=== PATIENT | male | born 1945 | race Caucasian/White ===

== ENCOUNTER 2019-12-15 09:38 | Outpatient (CLI) | payer OTHER, SELFPAY ==
--- NOTE | 2019-12-15 11:30 | NEURO_ITS ---
Patient Number: [id number] Impression: # Complains of left lower extremity giving out. # Normal nerve conduction study including F-waves. # Needle/EMG exam not requested. # Clinical correlation recommended. Nerve Conduction Studies Anti Sensory Summary Table Stim Site NR Peak (ms) P-T Amp (?V) Site1 Site2 Delta-P (ms) Dist (cm) Paco (m/s) Left Sup Fibular Anti Sensory (Ant Lat Mall) 14 cm 3.4 17.5 14 cm Ant Lat Mall 3.4 16.0 47 Left Sural Anti Sensory (Lat Mall) Calf 3.5 10.3 Calf Lat Mall 3.5 16.0 46 Motor Summary Table Stim Site NR Onset (ms) O-P Amp (mV) Site1 Site2 Delta-0 (ms) Dist (cm) Paco (m/s) Left Peroneal Motor (Vastus Med) Ankle 4.9 2.4 Popit Ankle 7.9 38.0 48 Popit 12.8 1.8 Left Tibial Motor (Abd Fenton Brev) Ankle 4.6 9.6 Knee Ankle 9.4 42.0 45 Knee 14.0 5.9 F Wave Studies NR F-Lat (ms) L-R F-Lat (ms) Left Peroneal (Mrkrs) (EDB) 53.39 Left Tibial (Mrkrs) (Abd Hallucis) 52.43 MTDD
== END 2019-12-15 09:39 | disposition home or self-care (01) ==
PROVIDERS: PCP Family Medicine Adolescent Medicine; Visit Provider Family Medicine Adolescent Medicine
DX: R20.2 Paresthesia of skin (principal); R20.0 Anesthesia of skin
CPT/HCPCS: 95908

== ENCOUNTER → 2020-03-21 09:34 | Outpatient (CLI) | payer OTHER, SELFPAY ==
--- NOTE | ~2020-03-21 | XR_ITS ---
EXAMINATION: XR hip RT min 2V DATE: 03/21/2020 10:02 INDICATION: Right hip pain. TECHNIQUE: 2 views of right hip were obtained. COMPARISON: None. FINDINGS: Bone alignment is normal. No fracture. There is severe right hip osteoarthritis. IMPRESSION: 1. Severe right hip osteoarthritis. Reviewed, dictated and finalized at location B.
== END ==
PROVIDERS: PCP Family Medicine Adolescent Medicine; Visit Provider Family Medicine Adolescent Medicine
DX: M25.551 Pain in right hip (principal); M16.11 Unilateral primary osteoarthritis, right hip
CPT/HCPCS: 73502

== ENCOUNTER 2020-09-26 11:28 | Outpatient (CLI) | payer OTHER, SELFPAY ==
--- NOTE | 2020-09-26 | ECG_ITS ---
Measurements Intervals [place] Rate: 64 P: 91 CA: 205 QRS: 61 QRSD: 96 T: 68 QT: 416 QTc: 429 Interpretive Statements SINUS RHYTHM BASELINE ARTIFACT- I, II, III, AVR, AVL, AVF, V1 BORDERLINE ECG Electronically Signed On 09-26-2020 13:07:39 CABINETMAKER MAINTENANCE by Yvon Tejeda D.O.
[2020-09-26 12:12] LABS: Hematocrit 36.4 % (42.0-52.0); Hemoglobin 11.3 g/dL (14.0-18.0)
[2020-09-26 12:19] LABS: Hemoglobin A1C 4.8 % (<5.7); Urine Cotinine NEGATIVE
[2020-09-26 12:20] LABS: Albumin Level 3.9 g/dL (3.5-5.1); Estimated Glomerular Filt Rate > 60; Glucose 118 mg/dL (75-110)
== END 2020-09-26 11:29 | disposition home or self-care (01) ==
LOC: ANHLAB 11:34
PROVIDERS: PCP Family Medicine Adolescent Medicine; Visit Provider Orthopaedic Surgery
DX: Z01.818 Encounter for other preprocedural examination (principal); M17.11 Unilateral primary osteoarthritis, right knee; J44.9 Chronic obstructive pulmonary disease, unspecified; Z87.891 Personal history of nicotine dependence; Z51.81 Encounter for therapeutic drug level monitoring; Z79.899 Other long term (current) drug therapy
CPT/HCPCS: 80307; 82040; 82565; 82947; 83036; 85014; 85018; 93005

== ENCOUNTER 2020-10-10 09:45 | Outpatient (CLI) | payer OTHER, SELFPAY ==
[2020-10-10 11:28] LABS: Basophils Percent Auto 0.5 % (0.2-1.2); Eosinophils Percent Auto 0.2 % (0-4.4); Hematocrit 36.7 % (42.0-52.0); Hemoglobin 11.5 g/dL (14.0-18.0); Immature Granulocyte Absolute 0.04 K/mm3 (0.00-0.031); Immature Granulocyte Percent A 0.5 % (0-0.5); Immature Platelet Fraction Pct 2.8 % (0.9-11.2); Lymphocytes Absolute Auto 0.86 K/mm3 (0.9-3.2); Lymphocytes Percent Auto 9.8 % (18.3-44.2); Mean Corpuscular HGB Conc 31.3 g/dl (32-36); Mean Corpuscular Hemoglobin 20.2 pg (26-34); Mean Corpuscular Volume 64.5 fl (80-100); Monocytes Absolute Auto 0.5 K/mm3 (0.1-0.6); Monocytes Percent Auto 5.9 % (2.6-8.5); Neutrophils Absolute Auto 7.3 K/mm3 (1.3-6.7); Neutrophils Percent Auto 83.1 % (45.5-73.1); Platelet Count Result 169 k/mm3 (150-375); Red Blood Count 5.69 M/mm3 (4.6-6.20); Red Cell Distribution Width 17.3 % (11.5-14.5); White Blood Count 8.8 K/mm3 (4.5-10.0)
== END 2020-10-10 09:46 | disposition home or self-care (01) ==
PROVIDERS: PCP Family Medicine Adolescent Medicine; Visit Provider Orthopaedic Surgery
DX: M16.11 Unilateral primary osteoarthritis, right hip (principal); Z01.812 Encounter for preprocedural laboratory examination
CPT/HCPCS: 36415; 85025; 85055; 87081

== ENCOUNTER → 2020-10-28 05:27 | Outpatient (CLI) | payer OTHER, SELFPAY ==
[2020-10-28 19:34] LABS: SARS-CoV-2 RNA PCR Negative
== END ==
PROVIDERS: PCP Family Medicine Adolescent Medicine; Visit Provider Orthopaedic Surgery
DX: Z01.812 Encounter for preprocedural laboratory examination (principal); Z20.822 Contact with and (suspected) exposure to COVID-19
CPT/HCPCS: C9803; U0003; U0005

== ENCOUNTER 2020-10-31 10:59 | Inpatient (IN) | payer OTHER, SELFPAY ==
[2020-10-10 10:18] VITALS: BP 162/99; PULSE 96; RESP 20; TEMP 36.6; O2SAT 100; BMI 22.6
[2020-10-31] VITALS (15 sets, daily range): BP systolic 156–207; BP diastolic 81–101; PULSE 63–80; RESP 10–21; TEMP 35.8–36.4; O2SAT 96–100
--- NOTE | ~2020-10-31 | XR_ITS ---
EXAMINATION: XR hip RT min 2V EXAM DATE: 10/31/2020 10:06 INDICATION: Total right hip replacement. Postoperative. TECHNIQUE: Portable frontal, crosstable lateral projections right hip obtained immediately following arthroplasty. Procedure performed by Jaswant Morgan MD. FINDINGS: Patient is status post right hip arthroplasty. The orthopedic hardware is in expected pos ition. There is small amount of subcutaneous gas, some soft tissue swelling. Correlate with proce dure note. IMPRESSION: Status post right hip arthroplasty. Reviewed, dictated and finalized at location A.
[2020-10-31] MEDS: ACETAMINOPHEN 500 MG TABLET 1000 MG PO (06:31)
[2020-10-31] MEDS: LACTATED RINGERS 1,000 ML 30 ML IV CONT ×2 (06:35→09:48)
[2020-10-31] MEDS: TRANEXAMIC ACID 1,000MG/ISO100 1,000 MG/100 ML BAG 200 MG IVPB (06:39)
--- NOTE | 2020-10-31 07:03 | WPDANESEPPF ---
Anes - Initial Pre Proc Eval Procedure: Operation Date: 10/31/20 07:30 Proposed Procedures p Right Total Hip Arthroplasty - Jaswant Morgan MD Date/Time: 10/31/20 07:03 Surgeon: Jaswant Morgan MD Pre Op Diagnosis: Primary OA, Right Hip Patient Data Age: 75 Gender: M Height: 5 ft 7 in Weight: 65.7 kg Last Vital Signs Temp 36.6 C 10/10/20 10:18 Pulse 96 10/10/20 10:18 Resp 20 10/10/20 10:18 BP 162/99 H 10/10/20 10:18 Pulse Ox 100 10/10/20 10:18 Allergies Allergy/AdvReac Type Severity Reaction Status Date / Time No Known Allergies Allergy Verified 10/10/20 10:09 Home Medications Medication Instructions Recorded Confirmed Type lisinopril 5 mg tablet 5 mg PO HS 06/15/20 10/16/20 History meloxicam 15 mg tablet 15 mg PO DAILY 06/15/20 10/16/20 History tamsulosin 0.4 mg capsule 0.4 mg PO HS 06/15/20 10/16/20 History aspirin 325 mg PO HS 10/10/20 10/16/20 History atorvastatin 80 mg PO HS 10/10/20 10/16/20 History finasteride 5 mg PO HS 10/10/20 10/16/20 History oxybutynin chloride 10 mg PO HS 10/10/20 10/16/20 History Laboratory Tests 10/28/20 08:00 SARS-CoV-2 RNA (RT-PCR) Cancelled Patient hx anesthesia problems: none Family hx anesthesia problems: none PMFSH Past Medical History Medical History History of stroke 09/18/2016 09/20/2018 Hyperlipidemia Hypertension Family History Family History Father Colon cancer Mother Heart disease Social History Social History Smoking status: Current every day smoker Tobacco type: cigars Smoking end date: 09/11/20 Additional smoking assessment comments: STATES 4 CIGARS/DAY/SINCE 1969 Alcohol intake: current Drinks per week: 3 Substance use: never Substance use type: does not use Living arrangements: with family Spiritual care concerns: No Anes - Eval Final PreProcedure Day of Procedure 10/31/20 07:03 Patient weight: normal Heart: regular rate and rhythm Lungs: decreased breath sounds Airway: Mallampati scale (loose lower incisor) class II Neurological: other (alert) Last oral intake: >/= 8 hours ASA classification: III Emergent: no Anesthetic plan: proceed Anesthesia type and monitoring: general ETT and standard monitoring Informed Consent: The patient's anesthetic plan and its attendant risks and benefits were discussed with the patient/family/POA. Questions were solicited and answers provided to the satisfaction of the patient/family/POA.
--- NOTE | 2020-10-31 07:19 | WPDHPUPDATE1 ---
History and Physical Update Update Date/Time: 10/31/20 07:19 History and Physical has been reviewed, including an updated exam of the patient. There are NO changes in the patient's condition. Risks, benefits, and alternatives have been discussed and questions answered. Patient agrees to proceed with procedure.
[2020-10-31] MEDS: ceFAZolin 2 GM/D5W 50 ML 2 GM/50 ML BAG IVPB (07:30)
[2020-10-31] MEDS: LABETALOL HCL INJ 100 MG/20 ML VIAL IV PUSH (10:05)
[2020-10-31] MEDS: fentaNYL CITRATE INJ (*CRX) 100 MCG/2 ML VIAL 25 MCG IV PUSH ×4 (10:08→10:22)
--- NOTE | 2020-10-31 10:12 | PM.PROC ---
Procedure Note - Detailed Date of procedure: 10/31/20 Pre-op diagnosis: Primary OA, Right Hip Post-op diagnosis: same Procedure performed: Total hip arthroplasty. Implants: The Accolade II hip stem, 127 degree size 6 , was utilized with excellent press-fit. The 52 mm ADM acetabular component was impacted with excellent press-fit stability. The +0 , 28 mm Biolox ceramic femoral head was utilized. [facility] Sur[facility]: Jaswant Morgan MD Tree Surgeon: Nataliia Fenton PA-C Estimated blood loss (mL): 200 Drains: No Complications: None Condition: stable Findings: Physician assistant plant control operator, Nataliia Fenton PA-C, required for surgery; including patient positioning, draping, tissue retraction, maintaining instrument position, dislocation and reduction of the hip joint. Wound closure, and dressing placement. OPERATIVE DETAILS: The patient was given preoperative antibiotics. A general anesthetic was administered. The patient was carefully placed in the lateral decubitus position on the PEG board. The shoulders and hips were carefully positioned for component and leg length positioning reference. The hip was prepped and draped in the usual sterile fashion. A longitudinal incision was created over the posterior aspect of the greater trochanter. Careful dissection was brought down through the deep fascia with electrocautery. A minimally invasive optimized posterior approach to the hip was performed. The short external rotators and capsule were taken down in an L-shaped capsulotomy. The tissue was tagged for later repair using number 2 high strength suture. The femoral neck was measured and taken in situ. The femoral head was removed. The acetabulum was carefully exposed. The inferior capsule was released. The labrum was resected. The acetabulum was sequentially reamed to one over the intended cup size. The cup was impacted into position with excellent press-fit. Typical anatomic landmarks, including the bony contact points as well as the inferior transverse acetabular ligament were used to confirm cup positioning with preoperative templating. Attention was turned to the femur, which was carefully exposed. The hip was reamed and then broached sequentially. Excellent press-fit was obtained with the broach. The hip was trialed. Measurements were utilized, including the lesser trochanter as well as the center of the femoral head and the tip of the trochanter, and excellent assessment of the offset and leg lengths were confirmed. The real component was impacted into position. Trialing confirmed appropriate leg length and offset with soft tissue balancing as well apparent feel of the leg, both at the knee and the heel. Soft tissues were assessed using the the iliotibial band. Reduction of the posterior capsule and external rotators were also used as a secondary assessment. The hip was copiously irrigated with pulsatile lavage antibiotic solution periodically throughout the procedure. The real components were then assembled and reduced. The hip was stable throughout typical maneuvers, including extension, external rotation to 70 degrees, the position of sleep as well as flexion to 90 degrees with internal rotation past 45 degrees. The shake test confirmed stability without impingement. Osteophytes were removed as necessary. The short external rotators and capsule were repaired back to the posterior trochanter through drill holes. The deep fascia was repaired with running number 2 Quill suture, followed by 0 Stratafix suture and 2-0 Stratafix suture in the dermis. Steri-Strips were placed on the skin, followed by a sterile silver occlusive dressing. There were no complications. Meticulous hemostasis was maintained with the AquaMantys device. The patient was brought to the recovery room in stable condition. There were no complications.
[2020-10-31] MEDS: hydrALAZINE HCL 20 MG/ML VIAL 10 MG IV PUSH (10:32)
--- NOTE | 2020-10-31 10:56 | SUR.PHASEI ---
1056 - dr. palafox called in regards to b/p 191/98 hr 76. no orders received at this time
--- NOTE | 2020-10-31 11:07 | ADMGEN ---
This patient, Yazan Peña, was admitted to Medical Room 242-. Patient/family oriented to hospital policies and general routines including ID bracelet, bed and alarms, visiting hours, pain management, procedures, bathroom and other care routines, personal items, smoking policy, room service/diet, and visiting hours. Information on how to activate the Rapid Response Team has been discussed. Patient/Family are encouraged to report perceived risks to care and to ask questions if they do not understand what they are told or what they should do.
[2020-10-31] MEDS: oxyCODONE HCL (*CRX) 5 MG TAB IR 10 MG PO ×2 (11:30→17:34)
[2020-10-31] MEDS: SODIUM CHLORIDE 0.9% IV 1,000 ML 125 ML IV CONT (11:31)
[2020-10-31 11:37] LABS: Hematocrit 33.5 % (42.0-52.0); Hemoglobin 10.5 g/dL (14.0-18.0)
[2020-10-31] MEDS: ONDANSETRON INJ 4 MG/2 ML VIAL IV PUSH (13:45)
[2020-10-31] MEDS: DOCUSATE SODIUM 100 MG CAPSULE PO (17:34)
[2020-10-31] MEDS: ASPIRIN 325 MG TABLET PO (20:44)
[2020-10-31] MEDS: lisinopriL 5 MG TABLET PO (20:44)
[2020-10-31] MEDS: ATORVASTATIN 40 MG TABLET 80 MG PO (20:44)
[2020-10-31] MEDS: FINASTERIDE 5 MG TABLET PO (20:45)
[2020-10-31] MEDS: TAMSULOSIN HCL 0.4 MG CAPSULE PO (20:45)
[2020-11-01 00:44] VITALS: BP 124/57; PULSE 81; RESP 20; TEMP 36.2; O2SAT 98
[2020-11-01 04:44] VITALS: BP 122/52; PULSE 82; RESP 18; TEMP 36.1; O2SAT 97
[2020-11-01 06:02] LABS: Basophils Percent Auto 0.2 % (0.2-1.2); Eosinophils Percent Auto 0.1 % (0-4.4); Hematocrit 29.6 % (42.0-52.0); Hemoglobin 9.4 g/dL (14.0-18.0); Immature Granulocyte Absolute 0.04 K/mm3 (0.00-0.031); Immature Granulocyte Percent A 0.5 % (0-0.5); Immature Platelet Fraction Pct 2.8 % (0.9-11.2); Lymphocytes Absolute Auto 1.22 K/mm3 (0.9-3.2); Lymphocytes Percent Auto 13.9 % (18.3-44.2); Mean Corpuscular HGB Conc 31.8 g/dl (32-36); Mean Corpuscular Hemoglobin 20.5 pg (26-34); Mean Corpuscular Volume 64.6 fl (80-100); Monocytes Absolute Auto 0.8 K/mm3 (0.1-0.6); Monocytes Percent Auto 8.5 % (2.6-8.5); Neutrophils Absolute Auto 6.7 K/mm3 (1.3-6.7); Neutrophils Percent Auto 76.8 % (45.5-73.1); Platelet Count Result 153 k/mm3 (150-375); Red Blood Count 4.58 M/mm3 (4.6-6.20); Red Cell Distribution Width 16.4 % (11.5-14.5); White Blood Count 8.8 K/mm3 (4.5-10.0)
[2020-11-01 06:13] LABS: Anion Gap 1 mmol/L (8-16); Blood Urea Nitrogen 13 mg/dL (9-20); Calcium 8.1 mg/dL (8.4-10.2); Carbon Dioxide 28 mmol/L (22-30); Chloride 105 mmol/L (98-107); Estimated CRCL calculation 66 ml/min; Estimated Glomerular Filt Rate > 60; Glucose 103 mg/dL (75-110); Potassium 3.8 mmol/L (3.4-5.0); Sodium 134 mmol/L (137-145)
[2020-11-01] MEDS: oxyCODONE HCL (*CRX) 5 MG TAB IR PO ×3 (06:58→16:53)
[2020-11-01] MEDS: DOCUSATE SODIUM 100 MG CAPSULE PO ×2 (08:35→16:53)
[2020-11-01] MEDS: MELOXICAM 7.5 MG TABLET 15 MG PO (08:35)
[2020-11-01 08:44] VITALS: BP 142/76; PULSE 79; RESP 18; TEMP 36.2; O2SAT 99
--- NOTE | 2020-11-01 11:01 | PCOTNOTE ---
Attempted to see patient this am, however patient already dressed and waiting for discharge. Educated patient and family member on use of adaptive equipment for bathing and dressing techniques. Reviewed neurological surgeon and long handled sponge techniques. Pt nor family member had questions of concern at this time as pertains to OT.
[2020-11-01] MEDS: ONDANSETRON INJ 4 MG/2 ML VIAL IV PUSH (11:24)
--- NOTE | 2020-11-01 12:01 | PM.DS ---
DS: Admitting Diagnosis Admitting Diagnosis Admitting Diagnosis: OA Right hip DS: Discharge Diagnosis Discharge Diagnosis (1) Status post total hip replacement, right: Code(s): Z96.641 - Presence of right artificial hip joint Status: Acute Assessment and Plan: Postop day 1: Right total Hip arthroplasty. Patient tolerated procedure well. No complications. Pain manageable with pain medication. Pain worse after PT. Patient is having some nausea and dry heaves. No numbness or tingling. Will send patient home with Mia. Patient was able to urinate on his own after removal of catheter. His has lung cancer and difficulty breathing and patient will need more help at home. Patient will need home health. We had a lengthy discussion regarding postoperative wound care, limitations, expectations, and exercises. Patient shows good understanding. DVT prophylaxis: Continue home medication full strength ASA daily. Pain medication: Percocet. Nausea: Zofran Patient has followup appointment with Dr. Morgan in 3 weeks. DS: Summary Hospital Course Reason for hospitalization: Total hip arthroplasty Hospital Course: Patient tolerated procedure well. Has had initial PT/OT. Status at Discharge Functional status at discharge: uses cane/walker Overall status at discharge: patient is progressing back to baseline Time Spent with Patient Time attestation: Total time spent providing and/or coordinating discharge services: Exam Narrative: Exam Narrative: Thin Male. Resting comfortably in bed. Wearing compression socks bilaterally. Dressing dry and intact with no drainage. Moderate swelling. No ecchymosis. No erythema. No hematoma. Range of motion limited due to pain. Calf nontender. Thigh nontender. Neurologic status intact. No varicosities. Distal pulses palpable. DS: Data Data Completed and Pending Labs on day of discharge: Labs from last 24 hours 11/01/20 11/01/20 05:04 05:04 WBC 8.8 RBC 4.58 L Hgb 9.4 L Hct 29.6 L MCV 64.6 L MCH 20.5 L MCHC 31.8 L RDW 16.4 H Plt Count 153 MPV TNP Immature Gran % (Auto) 0.5 Neut % (Auto) 76.8 H Lymph % (Auto) 13.9 L [place] % (Auto) 8.5 Eos % (Auto) 0.1 Baso % (Auto) 0.2 Lymph # (Auto) 1.22 [place] # (Auto) 0.8 H Eos # (Auto) 0.0 Baso # (Auto) 0.0 Abs Immat Gran (auto) 0.04 H Absolute Neuts (auto) 6.7 Absolute Nucleated RBC 0.0 Nucleated RBC % 0.0 % Immature Plt Fraction 2.8 Sodium 134 L Potassium 3.8 Chloride 105 Carbon Dioxide 28 Anion Gap 1 L BUN 13 Creatinine 0.80 Estim Creat Clear Calc 66 Estimated GFR > 60 Glucose 103 Calcium 8.1 L Discharge Plan Discharge Attending physician on discharge: Jaswant Morgan Consulting providers: Shikha Marinelli Discharging Clinician: Nataliia Fenton Patient Disposition: Home Health Service Activity: november shower Diet: regular Wound Care Instructions: follow printed instructions Discharge Instructions: See blue instruction sheet Patient Instructions: Antibiotic Form, How to Stop Smoking (DC), Joint Replacement Surgery (DC), Total Hip Replacement (DC) Stand Alone Forms: General Discharge Information Follow-up/Referrals: Nataliia Fenton, PA [Physician District Resource Officer] - Discharge Medications: New oxycodone-acetaminophen 5-325 mg tablet 1 - 2 tablet PO Q4-6H MDD 6 PRN (Reason: pain) Qty: 30 RF: 0 ondansetron HCl [Zofran] 4 mg tablet 4 mg PO Q8H PRN (Reason: nausea and vomiting) Qty: 10 RF: 0 Continued lisinopril 5 mg tablet 5 mg PO HS RF: 0 tamsulosin 0.4 mg capsule 0.4 mg PO HS RF: 0 meloxicam 15 mg tablet 15 mg PO DAILY RF: 0 atorvastatin 80 mg Tablet 80 mg PO HS RF: 0 oxybutynin chloride 10 mg Tablet Extended Release 24hr 10 mg PO HS RF: 0 aspirin 325 mg Tablet 325 mg PO HS RF: 0 finasteride 5 mg Tablet 5 mg PO HS RF: 0 Date o
[2020-11-01 12:20] VITALS: O2SAT 93
[2020-11-01 12:44] VITALS: BP 141/78; PULSE 86; RESP 18; TEMP 36.3; O2SAT 100
--- NOTE | 2020-11-01 12:54 | PM.IMCN ---
Assessment and Plan Assessment and plan (1) Status post total hip replacement, right: Code(s): Z96.641 - Presence of right artificial hip joint Status: Acute Assessment and Plan: Patient is POD#1 s/p elective right total hip arthroplasty by Dr. Morgan 10/31/20. Management per the primary service including pain management, wound care, DVT prophylaxis. Seems to have tolerated the procedure well. Appears dispo is home with home health later today. (2) BPH (benign prostatic hyperplasia): Qualifiers: Lower urinary tract symptom presence: symptoms present Lower urinary tract symptom detail: urinary frequency Qualified Code(s): N40.1 - Benign prostatic hyperplasia with lower urinary tract symptoms; R35.0 - Frequency of micturition Code(s): N40.0 - Benign prostatic hyperplasia without lower urinary tract symptoms Status: Chronic Assessment and Plan: Home medications with Flomax and Proscar resumed. (3) Hypertension: Qualifiers: Hypertension type: essential hypertension Qualified Code(s): I10 - Essential (primary) hypertension Code(s): I10 - Essential (primary) hypertension Status: Chronic Assessment and Plan: Blood pressures reviewed, stable on his home lisinopril. Monitor BP and adjust treatment as needed. (4) Hyperlipidemia: Qualifiers: Hyperlipidemia type: unspecified Qualified Code(s): E78.5 - Hyperlipidemia, unspecified Code(s): E78.5 - Hyperlipidemia, unspecified Status: Chronic Assessment and Plan: Maintained on his home statin therapy. (5) History of stroke: Code(s): Z86.73 - Personal history of transient ischemic attack (TIA), and cerebral infarction without residual deficits Status: Chronic Assessment and Plan: Patient has had multiple strokes in the past, last 2019. Describes intermittent numbness and tingling to left leg which he says is chronic since his last CVA. No acute issues. Continue his home statin and aspirin therapy. Additional Plan Thank you for allowing me to participate in this patient's care. He is medically stable for discharge from hospitalist standpoint. Call for any questions or concerns. HPI Data of Consult Consult date: 11/01/20 Requesting Physician: EVERETT Campbell Primary Care Provider: Francis Hunter MD Consult Narrative Reason for consult: Postoperative medical management Narrative: Date of Service 11/01/20 3510 I am asked to see this patient in consultation at the request Dr. Morgan for postoperative medical management. The supervising physician for this medical consultation is Dr Ashley Moreno. Mr. Peña is a 75-year-old male with history of BPH, hypertension, dyslipidemia, prior CVAs in 2017 and 2019 who is admitted to the hospital after elective right total hip arthroplasty by Dr. Morgan 10/31/20 for treatment of primary osteoarthritis nonresponsive to conservative management outpatient. He has tolerated the procedure and is doing well today other than some nausea without vomiting which has resolved with Zofran. He denies chest pain, shortness of breath, or abdominal pain as tolerated some meals well today. He has worked with therapy and is up walking in the room. He rates his right hip pain at 8/10 while walking, 6/10 while he is resting. He tells me he believes he is discharging from the hospital today. He offers no complaints at this time. Review of Systems Review of Systems: All systems reviewed & are unremarkable except as noted in HPI and below PMFSH Past Medical History Medical History (Updated 11/01/20 @ 15:38 by Laura Juares PA-C) BPH (benign prostatic hyperplasia) History of stroke 09/18/2016
== END 2020-11-01 17:00 | disposition home health service (06) | DRG 470 ==
LOC: ANH2MED 11:01
PROVIDERS: Admitting Provider Orthopaedic Surgery; PCP Family Medicine Adolescent Medicine; Visit Provider Physician Assistant
PROC: 0SR902A Replacement of Right Hip Joint with Metal on Polyethylene Synthetic Substitute, Uncemented, Open Approach (ICD-10-PCS; CPT 27130; principal; 2020-10-31 07:30)
DX: M16.11 Unilateral primary osteoarthritis, right hip (principal); E78.5 Hyperlipidemia, unspecified; I10 Essential (primary) hypertension; N40.1 Benign prostatic hyperplasia with lower urinary tract symptoms; R35.0 Frequency of micturition; F17.290 Nicotine dependence, other tobacco product, uncomplicated; R20.2 Paresthesia of skin; R20.0 Anesthesia of skin; I69.398 Other sequelae of cerebral infarction
CPT/HCPCS: 36415; 73502; 80048; 85014; 85018; 85025; 85055; 86850; 86900; 86901; 97110; 97116; 97161; 97165; 97530; A9270; C1776; C9803; J0131; J0171; J0360; J0690; J1100; J1885; J2270; J2405; J2704; J2795; J3010; J7030; J7120; U0003; U0005

== ENCOUNTER 2021-06-27 21:25 | Emergency (ER) | payer OTHER, SELFPAY ==
--- NOTE | ~2021-06-27 | XR_ITS ---
EXAMINATION: XR shoulder RT min 2V DATE: 06/28/2021 00:59 INDICATION: Anterior right shoulder pain post fall TECHNIQUE: AP internally and externally rotated, AP oblique externally rotated and transscapular Y vi ews of the right shoulder were obtained. COMPARISON: None FINDINGS: Normal alignment. No fracture.Mild glenohumeral and acromioclavicular osteoarthritis. Multilevel mod erate to severe bilateral cervical facet osteoarthritis. Soft tissues are unremarkable. Visualized po rtions of the lungs are clear. IMPRESSION: Mild right glenohumeral and acromioclavicular osteoarthritis. No acute osseous abnormality. Reviewed, dictated and finalized at location A. UNITY YOUTH SECRETARY
--- NOTE | ~2021-06-27 | XR_ITS ---
EXAMINATION: XR knee RT 3V DATE: 06/28/2021 00:59 INDICATION: Right knee pain post fall and anterior bruising TECHNIQUE: Anteroposterior, oblique and crosstable lateral views of the right knee were obtained COMPARISON: None. FINDINGS: Alignment is normal. No fracture. No joint spaces appear normal on nonweightbearing imaging. No join t effusion/layering lipohemarthrosis. Mild prepatellar soft tissue swelling. IMPRESSION: 1. No right knee joint effusion or acute osseous abnormality. Reviewed, dictated and finalized at location A. ITY ASSURANCE/R&D LAB TECHNICIAN
--- NOTE | ~2021-06-27 | CT_ITS ---
EXAMINATION: CT brain wo con DATE: 06/28/2021 01:01 INDICATION: Head injury TECHNIQUE: Computed tomography (CT) of the head was performed without intravenous contrast. The dose- length product was 605.33 mGy-cm. Automated exposure control and iterative reconstruction technique w ere employed. COMPARISON: None FINDINGS: There is a small amount of hemorrhage in the temporal horn of the right lateral ventricle. No significant mass effect. Generalized atrophy. There are scattered moderate periventricular and sub cortical white matter changes, most likely related to small vessel ischemic disease (microangiopathy) . There are small chronic bilateral lacunar infarctions. Basilar cisterns are patent. There is intrac ranial atherosclerosis. Paranasal sinuses and mastoids are pneumatized. No depressed skull fractures. IMPRESSION: 1. Acute hemorrhage involving the temporal horn of the right lateral ventricle. No significant mass e ffect. 2: Chronic bilateral lacunar infarctions. 3: Chronic age-related findings. Dr. Sohail Aranda discussed with Dr. Joni MD at 06/28/2021 08:44 [employer] HAND. Reviewed, dictated and finalized at location B. TH AND [employer]ARLAND MAKER HAND IMPRESSION: 1. Acute hemorrhage involving the temporal horn of the right lateral ventricle. No significant mass effect. 2: Chronic bilateral lacunar infarctions. 3: Chronic age-related findings. Dr. Sohail Aranda discussed with Dr. Joni MD at 06/28/2021 08:44 [employer].
--- NOTE | ~2021-06-27 | XR_ITS ---
EXAMINATION: XR elbow RT min 3V DATE: 06/28/2021 00:59 INDICATION: Right elbow pain post fall with multiple large lacerations. TECHNIQUE: Anteroposterior, oblique and lateral views of the right elbow were obtained. COMPARISON: None. FINDINGS: Alignment is normal. No fracture or joint effusion. Minimal osteoarthritis at the right elbow. Soft t issues are unremarkable. IMPRESSION: 1. Minimal osteoarthritis at the right elbow. Reviewed, dictated and finalized at location A. UATION MANAGER
--- NOTE | ~2021-06-27 | CT_ITS ---
EXAMINATION: CT facial & cervical spine wo DATE: 06/28/2021 01:01 INDICATION: Status post fall. Facial bruising. Neck pain. TECHNIQUE: Computed tomography (CT) of the maxillofacial region and cervical spine was performed with out intravenous contrast. The dose-length product was 493.52 mGy-cm. COMPARISON: None FINDINGS: MAXILLOFACIAL CT: No acute facial fracture. Nasal bones, zygomatic arches, orbits, sinuses are unremarkable. No mandibu lar fracture. There are degenerative changes symmetrically in the temporomandibular joints. CERVICAL SPINE CT: There is moderate degenerative disc disease at C5-6 and to a lesser degree C6-7. Craniovertebral junc tion within normal limits. Odontoid process within normal limits. Vertebral body heights are maintain ed. Lung apices are normal. Moderate degenerative changes of the uncinate and facet joints. IMPRESSION: 1. No acute abnormality of the facial bones or cervical spine. Reviewed, dictated and finalized at location B. ING MACHINE OPERATOR
[2021-06-27 22:07] VITALS: BP 164/62; PULSE 81; RESP 18; TEMP 36.7; O2SAT 100
[2021-06-28 00:10] VITALS: BP 162/90; PULSE 74; RESP 16; O2SAT 99
--- NOTE | 2021-06-28 00:43 | ED.GENADULT ---
HPI - General Adult General Chief complaint: Fall Stated complaint: fall Time Seen by Provider: 06/28/21 00:17 History of Present Illness HPI narrative: Patient is a 75-year-old gentleman who presents to emergency department with chief complaint of fall. Patient reports that he was getting out of his vehicle carrying some food he had a piece of loose asphalt fell backwards and landed on the ground patient reports no loss of consciousness reports that he has bruising to his face and reports that he has multiple skin tears. The patient states he is unsure of his last tetanus shot reports there is pain in his right shoulder right elbow and right knee. Related Data Home Medications Medication Instructions Recorded Confirmed lisinopril 5 mg tablet 5 mg PO HS 06/15/20 10/31/20 meloxicam 15 mg tablet 15 mg PO DAILY 06/15/20 10/31/20 tamsulosin 0.4 mg capsule 0.4 mg PO HS 06/15/20 10/31/20 aspirin 325 mg PO HS 10/10/20 10/31/20 atorvastatin 80 mg PO HS 10/10/20 10/31/20 finasteride 5 mg PO HS 10/10/20 10/31/20 oxybutynin chloride 10 mg PO HS 10/10/20 10/31/20 Allergies Allergy/AdvReac Type Severity Reaction Status Date / Time No Known Allergies Allergy Verified 06/28/21 00:09 Review of Systems Review of Systems: A 10 system review of systems was completed on the patient and is negative except for what is stated in the HPI. Nursing and ancillary documentation was reviewed. [facility] Past Medical History Medical History BPH (benign prostatic hyperplasia) History of stroke 09/18/2016 09/20/2018 Hyperlipidemia Hypertension Surgical History Surgical History Status post right hip replacement Elective right total hip arthroplasty 10/31/20 - Dr. Morgan Family History Family History Father Colon cancer Mother Heart disease Social History Social History Social History: Mr. Peña lives at home with his , Jordyn, in [place]. 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 Reports he quit drinking alcohol after his first stroke in 2017. He smoked four cigars per day x 50 years since the , quit smoking Aug 2020; denies other illicit substance use. He designates his , Jordyn, as his surrogate decision maker and wishes to be full code status. His PCP is Dr. Isamar Hunter. Smoking status: Former smoker Smoking end date: 08/28/20 Additional smoking assessment comments: STATES 4 CIGARS/DAY/SINCE 1969 Alcohol intake: former Drinks per week: 3 Substance use: never Substance use type: does not use Spiritual care concerns: No Exam Narrative: GENERAL: Well-appearing, well-nourished, and in no acute distress. HEAD: Normocephalic, there is bruising around the right orbit. EYES: PERRLA and EOMI. ENT: Nares clear, no rhinorrhea or epistaxis. Mucous membranes moist. NECK: Supple. CHEST: Clear to auscultation. No respiratory distress. HEART: Regular rate and rhythm. No murmur heard. Normal peripheral pulses. ABDOMEN: Soft, nontender, nondistended, normal active bowel sounds. EXTREMITIES: Normal range of motion. No edema. There is tenderness to palpation of the right shoulder right elbow and right knee SKIN: Warm, dry, no rash. There are skin tears present in the right elbow left hand NEURO: No focal deficits. Alert and oriented x3. PSYCH: Normal mood and affect. Course Course Emergency Course: Knee x-ray negative Shoulder x-ray negative Elbow x-ray negative Vital Signs Vital signs: Vital Signs Temperature 36.7 C 06/27/21 22:07 Pulse Rate 81 06/27/21 22:07 Respiratory Rate 18 06/27/21 22:07 Blood Pressure 164/62 H 06/27/21 22:07 Pulse Oximetry 100 06/27/21 22:07 Temp
[2021-06-28 01:04] VITALS: BP 182/84; PULSE 81; RESP 24; O2SAT 98
[2021-06-28] MEDS: TETANUS,DIPHTHERIA,AC PERTUSSIS ADULT (0.5 ML) BOOSTRIX IM (01:16)
[2021-06-28 01:24] LABS: Basophils Percent Auto 0.5 % (0.2-1.2); Eosinophils Percent Auto 0.2 % (0-4.4); Hematocrit 32.6 % (42.0-52.0); Hemoglobin 10.4 g/dL (14.0-18.0); Immature Granulocyte Absolute 0.02 K/mm3 (0.00-0.031); Immature Granulocyte Percent A 0.2 % (0-0.5); Immature Platelet Fraction Pct 3.3 % (0.9-11.2); Lymphocytes Absolute Auto 1.22 K/mm3 (0.9-3.2); Mean Corpuscular HGB Conc 31.9 g/dl (32-36); Mean Corpuscular Hemoglobin 21.3 pg (26-34); Mean Corpuscular Volume 66.8 fl (80-100); Monocytes Absolute Auto 0.5 K/mm3 (0.1-0.6); Monocytes Percent Auto 6.4 % (2.6-8.5); Neutrophils Absolute Auto 6.3 K/mm3 (1.3-6.7); Neutrophils Percent Auto 77.7 % (45.5-73.1); Platelet Count Result 167 k/mm3 (150-375); Red Blood Count 4.88 M/mm3 (4.6-6.20); Red Cell Distribution Width 15.5 % (11.5-14.5); White Blood Count 8.1 K/mm3 (4.5-10.0)
[2021-06-28] MEDS: HYDROcodone/acetaminophen (*CRX) 5-325 MG TABLET 1 TAB PO (01:34)
[2021-06-28 01:35] LABS: Alanine Aminotransferase 16 U/L (4-50); Albumin Level 3.8 g/dL (3.5-5.1); Alkaline Phosphatase 48 U/L (38-126); Anion Gap 10 mmol/L (8-16); Aspartate Amino Transferase 33 U/L (17-59); Bilirubin,Total 0.7 mg/dL (0.2-1.3); Blood Urea Nitrogen 19 mg/dL (9-20); Calcium 8.7 mg/dL (8.4-10.2); Carbon Dioxide 21 mmol/L (22-30); Chloride 109 mmol/L (98-107); Estimated CRCL calculation 69 ml/min; Estimated Glomerular Filt Rate > 60; Glucose 85 mg/dL (65-110); Potassium 3.9 mmol/L (3.4-5.0); Sodium 140 mmol/L (137-145)
[2021-06-28 02:01] LABS: Add Urine Microscopic? YES; Appearance Urine Cloudy (Clear); Bilirubin Urine Negative (Negative); Blood Urine 1+ (Negative); Color Urine Yellow (Yellow); Glucose Urine UA Negative (Negative); Ketones Urine Negative (Negative); Leukocyte Esterase Ur Negative LEU/UL (Negative); Mucus Urine Few /lpf; Nitrate Urine Negative (Negative); Protein Urine Negative (Negative); Specific Grav Ur 1.017 (1.001-1.035); WBC Urine 0-3 /hpf
[2021-06-28 02:15] VITALS: BP 186/93; PULSE 76; RESP 19; O2SAT 97
[2021-06-28 02:46] VITALS: BP 174/86; PULSE 77; RESP 16; O2SAT 97
--- NOTE | 2021-06-28 17:16 | PC.NURSE ---
DR RAY CONTACTED PTS SPOUSE MAYA @ [id number] AND INFORMED OF RADIOLOGY OVER-READ. STATED SHE WILL DRIVE PT TO [facility].
== END 2021-06-28 02:48 | disposition home or self-care (01) ==
PROVIDERS: Emergency Provider Emergency Medicine; PCP Family Medicine Adolescent Medicine
DX: S22.31XA Fracture of one rib, right side, initial encounter for closed fracture (principal); S40.011A Contusion of right shoulder, initial encounter; S50.01XA Contusion of right elbow, initial encounter; S05.11XA Contusion of eyeball and orbital tissues, right eye, initial encounter; S80.01XA Contusion of right knee, initial encounter; S41.011A Laceration without foreign body of right shoulder, initial encounter; S81.011A Laceration without foreign body, right knee, initial encounter; Z87.891 Personal history of nicotine dependence; Z23 Encounter for immunization; N40.0 Benign prostatic hyperplasia without lower urinary tract symptoms; E78.5 Hyperlipidemia, unspecified; I10 Essential (primary) hypertension; Z86.73 Personal history of transient ischemic attack (TIA), and cerebral infarction without residual deficits; Z96.641 Presence of right artificial hip joint; W18.39XA Other fall on same level, initial encounter
CPT/HCPCS: 36415; 70450; 70486; 72125; 73030; 73080; 73562; 80053; 81001; 85025; 85055; 90471; 90715; 99284; A9270

== ENCOUNTER 2023-04-18 10:13 | Outpatient (CLI) | payer OTHER, SELFPAY ==
--- NOTE | ~2023-04-18 | XR_ITS ---
AP view of the pelvis and AP and lateral views of the left hip Clinical history: Pain Findings: No acute fracture or dislocation is seen. Osseous alignment is anatomic. Right hip arthropl asty is in place. No hardware complication seen. Left hip joint space is preserved, with minimal dege nerative change. Soft tissues are unremarkable. Impression: No acute fracture or dislocation. Minimal degenerative change of the left hip joint. Right hip arthroplasty in place. Reviewed, dictated and finalized at location M. Impression: No acute fracture or dislocation. Minimal degenerative change of the left hip joint. Right hip arthroplasty in place.
--- NOTE | ~2023-04-18 | XR_ITS ---
Lumbosacral Spine: AP and lateral views Clinical History: Pain Findings: The normal lordotic curve is maintained. The vertebral bodies and posterior elements are i ntact. There is minimal degenerative disc change throughout the lumbar spine. There is mild to modera te facet arthropathy throughout the lumbar spine. The sacroiliac joints are normally outlined. Impression: Mild degenerative spondylosis, as above. Reviewed, dictated and finalized at location M. Impression: Mild degenerative spondylosis, as above.
== END 2023-04-18 10:14 | disposition home or self-care (01) ==
LOC: ANHIMG 10:18
PROVIDERS: PCP Family Medicine Adolescent Medicine; Visit Provider Nurse Practitioner Family
DX: M25.552 Pain in left hip (principal); M54.50 Low back pain, unspecified
CPT/HCPCS: 72100; 73502